=== PATIENT | female | born 1950 | race Caucasian/White ===

== ENCOUNTER 2020-03-06 19:59 | Inpatient (IN) | payer OTHER, MEDICARE ==
--- OUTSIDE RECORDS SUMMARY | 2020-03-06 20:02 | XMS REPORT | Continuity of Care Document ---
:1950 Author Organization [facility] t Address [address] [place] [address] Dr. Holder [address] [place] [address] Care Team Providers Name Role Phone William Elliott MD Attending Clinician Doctor Unassigned, Name Attending Clinician Unavailable Problems This patient has no known problems. Allergies, Adverse Reactions, Alerts This patient has no known allergies or adverse reactions. Medications This patient has no known medications. Procedures This patient has no known procedures. Encounters Start End Encounter Admission Attending Care Care Encounter Source Date/Time Date/Time Type Type Clinicians Facility Department ID 2018-12-26 2018-12-26 Office Gunnar Elliott [id number] 12:59:25 14:28:18 Visit William Aparicio [id number] [facility] [id number] [facility] [id number] BLDG. [id number] 2018-12-26 2018-12-26 Orders Doctor [place] [id number] 00:00:00 00:00:00 Only UnassignedANGEL [id number] [facility] [id number] Results This patient has no known results.
[2020-03-06] MEDS ORDERED: FUROSEMIDE 40 MG/4 ML VIAL ONE (20:21)
[2020-03-06] MEDS ORDERED: ALBUTEROL 2.5 MG/3 ML NEB SOL ONE (20:21)
[2020-03-06] MEDS ORDERED: IPRATROPIUM BROM 0.5MG/2.5ML ONE (20:21)
[2020-03-06] MEDS ORDERED: NITROGLYCERIN/D5W 50 MG/250 ML BTL IV ONE (20:25)
--- NOTE | 2020-03-06 20:31 | RAD REPORT ---
EXAM DESCRIPTION: RAD - Chest Single View - 03/06/2020 8:21 pm CLINICAL HISTORY: SOB Chest pain. COMPARISON: CHEST SINGLE VIEW dated 07/22/2015 FINDINGS: Portable technique limits examination quality. Mild pulmonary edema. The heart is moderately enlarged in size. No displaced fractures.Hardware is pr esent proximal left humerus. IMPRESSION: Mild to moderate CHF.
[2020-03-06] MEDS ORDERED: ETOMIDATE 20 MG/10 ML VIAL IV ONE (20:32)
[2020-03-06] MEDS ORDERED: ROCURONIUM 50 MG/5 ML VIAL IV ONE (20:33)
[2020-03-06 20:37] LABS: Arterial Blood Carboxyhemoglob 0.7 % (0-1.5); Blood Gas Oxyhemoglobin 92.2 % (94-97)
[2020-03-06 20:42] LABS: Absolute Lymphocytes (CBC) 5.8 K/uL (0.7-4.9); Basophils % 1.1 % (0-1.3); Hematocrit 41.4 % (36.0-45.0); Lymphocytes % 24.5 % (15.3-44.8); MPV 10.4 fL (7.6-11.3); Protime INR 0.91; RBC Red Blood Cell Count 4.41 M/uL (3.86-4.86)
[2020-03-06] MEDS ORDERED: NA CHLORIDE 0.9% 250 ML ONE (20:49)
[2020-03-06] MEDS ORDERED: CEFTRIAXONE/SWI 1gm 1 GM/10 ML SYR ONE (20:49)
[2020-03-06] MEDS ORDERED: AZITHROMYCIN 500 MG INJ IVPB ONE (20:49)
[2020-03-06] MEDS ORDERED: propofoL 1,000 MG/100 ML VIAL IV ONE (20:50)
--- NOTE | 2020-03-06 21:18 | RAD REPORT ---
EXAM DESCRIPTION: RAD - Chest Single View - 03/06/2020 9:00 pm CLINICAL HISTORY: POST ETT Chest pain. COMPARISON: Chest Single View dated 03/06/2020; CHEST SINGLE VIEW dated 07/22/2015 FINDINGS: Portable technique limits examination quality. Tip of the endotracheal tube is above the lily. Enteric tube descends in the stomach. Moderate bila teral pulmonary opacities are noted most compatible pulmonary edema. The heart is mildly enlarged in size. IMPRESSION: Moderate CHF.
[2020-03-06 21:45] LABS: Blood Morphology Comment NOT SEEN (NOT SEEN); Platelet Estimate ADEQ
[2020-03-06 21:58] LABS: ALT/SGPT 28 U/L (12-78); AST/SGOT 24 U/L (15-37); Albumin 3.8 g/dL (3.4-5.0); Alkaline Phosphatase 107 U/L (45-117); BUN Blood Urea Nitrogen 22 mg/dL (7-18); Bicarbonate 17 mmol/L (21-32); Bilirubin Direct 0.2 mg/dL (0-0.2); Bilirubin Total 0.8 mg/dL (0.2-1.0); Glucose Level 380 mg/dL (74-106); Magnesium 2.5 mg/dL (1.8-2.4); NT PRO-BNP 3090 pg/mL (<125); Potassium 4.1 mmol/L (3.5-5.1); Protein, Total 7.4 g/dL (6.4-8.2); Sodium Level 143 mmol/L (136-145); Troponin (Emerg Dept Use Only) < 0.02 ng/mL (0.0-0.045)
--- NOTE | 2020-03-06 22:06 | EDPHYS ---
Physician Documentation [facility] Name: Julio Moss Age: 69 yrs Sex: Female : 1950 Arrival Date: 03/06/2020 Time: 20:01 Bed 4 Private MD: ED Physician Vern Alejandro HPI: 03/06 20:44 This 69 yrs old Female presents to ER via Wheelchair with complaints of mh7 Shortness Of Breath. 20:44 The patient has shortness of breath at rest. Onset: The symptoms/episode began/occurred mh7 today, and became worse just prior to arrival, today. Duration: The symptoms are continuous, and are markedly worse than the original presentation. The patient's shortness of breath has no apparent modifying factors. Associated signs and symptoms: Pertinent negatives: chest pain, non-productive cough, productive cough, diaphoresis, dizziness, fever, hemoptysis, loss of consciousness, nausea, numbness in extremities, visual changes, vomiting. Severity of symptoms: At their worst the symptoms were severe just prior to arrival, today, in the emergency department the symptoms are unchanged. Historical: - Allergies: 20:06 OPIATES; jd3 20:06 Sulfa (Sulfonamide Antibiotics); jd3 20:06 Levofloxacin; jd3 20:06 PENICILLINS; jd3 - Home Meds: 20:08 Metformin Oral [Active]; Omeprazole Oral [Active]; lisinopril Oral [Active]; Furosemide jd3 Oral [Active]; Metoprolol Tartrate Oral [Active]; Allopurinol Oral [Active]; paroxetine oral oral [Active]; aspirin Oral [Active]; - PMHx: 20:08 CHF; Diabetes - NIDDM; GERD; Hypertension; jd3 - Immunization history:: Adult Immunizations up to date. - Social history:: Smoking status: Patient denies any tobacco usage or history of. ROS: 20:44 Constitutional: Negative for fever, chills, and weight loss, Eyes: Negative for injury, mh7 pain, redness, and discharge, ENT: Negative for injury, pain, and discharge, Neck: Negative for injury, pain, and swelling, Cardiovascular: Negative for chest pain, palpitations, and edema, Abdomen/GI: Negative for abdominal pain, nausea, vomiting, diarrhea, and constipation, Back: Negative for injury and pain, : Negative for injury, bleeding, discharge, and swelling, MS/Extremity: Negative for injury and deformity, Skin: Negative for injury, rash, and discoloration, Neuro: Negative for headache, weakness, numbness, tingling, and seizure, Psych: Negative for depression, anxiety, suicide ideation, homicidal ideation, and hallucinations, Allergy/Immunology: Negative for hives, rash, and allergies, Endocrine: Negative for neck swelling, polydipsia, polyuria, polyphagia, and marked weight changes, Hematologic/Lymphatic: Negative for swollen nodes, abnormal bleeding, and unusual bruising. Exam: 20:44 Head/Face: Normocephalic, atraumatic. Eyes: Pupils equal round and reactive to light, mh7 extra-ocular motions intact. Lids and lashes normal. Conjunctiva and sclera are non-icteric and not injected. Cornea within normal limits. Periorbital areas with no swelling, redness, or edema. Neck: Trachea midline, no thyromegaly or masses palpated, and no cervical lymphadenopathy. Supple, full range of motion without nuchal rigidity, or vertebral point tenderness. No Meningismus. Chest/axilla: Normal chest wall appearance and motion. Nontender with no deformity. No lesions are appreciated. 20:44 Abdomen/GI: Soft, non-tender, with normal bowel sounds. No distension or tympany. No guarding or rebound. No evidence of tenderness throughout. Back: No spinal tenderness. No costovertebral tenderness. Full range of motion. Skin: Warm, dry with normal turgor. Normal color with no rashes, no lesions, and no evidence of cellulitis. MS/ Extremity: Pulses equal, no cyanosis. Neurovascular intact. Full, normal range of motion. Neuro: Awake and alert, GCS 15, oriented to person, place, time, and situation. Cranial nerves II-XII grossly intact. Motor strength 5/5 in all extremities. Sensory grossly intact. Cerebellar exam normal. Normal gait. Psych: Awake, alert, with orientation to person, place and time. Behavior, mood, and affect are within normal limits. 20:44 Constitutional: The patient appears alert, awake, in obvious distress, severely distressed, uncomfortable. 20:44 Cardiovascular: Rate: tachycardic, Rhythm: regular, Pulses: no pulse deficits are appreciated, Heart sounds: normal, normal S1and S2, Edema: pedal edema, that is mild, JVD: is not appreciated. 20:44 Respiratory: severe repiratory distress is noted, Respirations: labored breathing, that is severe, accessory muscle usage, that is severe, prolonged exhalation, that is moderate, tachypnea, that is moderate, Breath sounds: rales, that are moderate, are heard diffusely, rhonchi, that are moderate, are scattered, Respiratory rate: 40 Vital Signs: 20:08 BP 168 / 88; Pulse 135; Resp 45; Temp 96.9(TE); Pulse Ox 48% on R/A; sg 20:19 Pulse 105; Resp 40; Pulse Ox 92% on 100% BiPAP; Weight 78.02 kg; sg 21:22 BP 169 / 102; Pulse 94; Resp 16; Temp 98.9; Pulse Ox 95% ; ea 21:44 BP 180 / 95; Pulse 88; Resp 16 A; Pulse Ox 95% on 50% FiO2 ETT vent; sg Procedures: 20:49 Intubation: Ventilated with 100% NRB prior to procedure. O2 saturation prior to [facility] procedure was 92 %. Intubated orally using # 4 Emiliano blade with 7.5 mm ETT. was successful on first attempt. Ventilated with Ambu bag. ventilator. Cricoid pressure applied during procedure. Tube secured with ETT wise at center of mouth measured 21 cm at lip. Placement verified by CO2 detector with (+) color change, auscultating bilateral breath sounds, O2 saturation after procedure was 99 %. Patient tolerated well. MDM: 20:34 Patient medically screened. [facility] 21:56 Differential diagnosis: Anemia Anxiety Reaction asthma, Bronchitis CHF exacerbation, mh7 Chronic Obstructive Pulmonary Disease Myocardial Infarction pneumonia, Pneumothorax pulmonary edema, reactive airway disease. Antibiotic administration: Rocephin and Zithromax given. Data reviewed: vital signs, nurses notes, old medical records, lab test result(s), cardiac enzymes, CBC, electrolytes, urinalysis, EKG, radiologic studies, plain films. Data interpreted: Pulse oximetry: on ventilator is 95 %. Interpretation: acceptable. Response to treatment: the patient's symptoms have markedly improved after treatment. Physician consultation: Angelo Castorena MD regarding patient's condition, and will see patient in unit, would like admission per Dr. Kade Helms MD. 03/06 20:12 Order name: Basic Metabolic Panel; Complete Time: 22:05 [facility] 03/06 20:12 Order name: CBC with Diff; Complete Time: 21:50 [facility] 03/06 20:12 Order name: LFT's; Complete Time: 22:05 [facility] 03/06 20:12 Order name: Magnesium; Complete Time: 22:05 [facility] 03/06 20:12 Order name: NT PRO-BNP; Complete Time: 22:05 [facility] 03/06 20:12 Order name: PT-INR; Complete Time: 21:04 [facility] 03/06 20:12 Order name: Troponin (emerg Dept Use Only); Complete Time: 22:05 [facility] 03/06 20:14 Order name: Arterial Blood Gas; Complete Time: 21:25 [facility] 03/06 20:18 Order name: Glucose, Ancillary Testing; Complete Time: 20:34 [facility] 03/06 20:35 Order name: Blood Culture Adult (2) [facility] 03/06 20:35 Order name: Lactate; Complete Time: 21:20 [facility] 03/06 20:35 Order name: Blood Culture Adult (2) [facility] 03/06 20:36 Order name: Influenza Screen (a \T\ B); Complete Time: 21:50 [facility] 03/06 20:36 Order name: COVID-19 [facility] 03/06 20:54 Order name: Manual Differential; Complete Time: 21:50 [facility] 03/06 21:38 Order name: Arterial Blood Gas [facility] 03/06 22:27 Order name: Troponin I [facility] 03/06 22:27 Order name: Troponin I [facility] 03/06 22:27 Order name: Troponin I [facility] 03/06 22:27 Order name: Troponin I [facility] 03/06 22:27 Order name: Basic Metabolic Panel [facility] 03/06 22:27 Order name: Basic Metabolic Panel [facility] 03/06 22:27 Order name: CBC with Automated Diff [facility] 03/06 22:27 Order name: CBC with Automated Diff [facility] 03/06 22:27 Order name: Lipid Profile [facility] 03/06 22:27 Order name: Lipid Profile [facility] 03/06 22:27 Order name: Magnesium [facility] 03/06 22:27 Order name: Magnesium [facility] 03/06 22:28 Order name: ABG Arterial Blood Gas [facility] 03/06 22:52 Order name: Ketone, Serum ea 03/06 20:12 Order name: XRAY Chest (1 view); Complete Time: 20:34 [facility] 03/06 20:12 Order name: EKG; Complete Time: 20:13 [facility] 03/06 20:34 Order name: Chest Single View XRAY; Complete Time: 21:25 [facility] 03/06 22:08 Order name: CT Chest For PE Angio [facility] 03/06 22:16 Order name: CONS Physician Consult [facility] 03/06 22:28 Order name: Chest Single View [facility] 03/06 22:28 Order name: Chest Single View [facility] 03/06 23:14 Order name: Acetone Level [facility] 03/07 00:15 Order name: SARS-COV-2 RT PCR [facility] 03/07 00:26 Order name: Lactate Sepsis 2 HR Follow-up [facility] 03/07 00:37 Order name: Glucose, Ancillary Testing [facility] 03/07 02:17 Order name: Urine Dipstick--Ancillary (enter results) [facility] 03/07 02:32 Order name: Glucose, Ancillary Testing [facility] 03/07 02:53 Order name: Urine Dipstick-Ancillary [facility] 03/07 04:41 Order name: Glucose, Ancillary Testing [facility] 03/07 06:33 Order name: Glucose, Ancillary Testing [facility] 03/07 08:03 Order name: Glucose, Ancillary Testing [facility] 03/06 20:12 Order name: Cardiac monitoring; Complete Time: 20:13 [facility] 03/06 20:12 Order name: EKG - Nurse/Tech; Complete Time: 20:13 [facility] 03/06 20:12 Order name: IV Saline Lock; Complete Time: 20:13 [facility] 03/06 20:12 Order name: Labs collected and sent; Complete Time: 20:13 [facility] 03/06 20:12 Order name: O2 Per Protocol; Complete Time: 20:13 [facility] 03/06 20:12 Order name: O2 Sat Monitoring; Complete Time: 20:13 [facility] 03/06 20:34 Order name: Intubation Setup; Complete Time: 20:34 sg 03/06 20:52 Order name: Urine Dipstick-Ancillary (obtain specimen); Complete Time: 02:18 [facility] 03/06 21:18 Order name: Frazier; Complete Time: 21:18 ea 03/06 22:27 Order name: EKG Electrocardiogram EDMS 03/06 22:27 Order name: EKG Electrocardiogram EDMS 03/06 22:27 Order name: EKG Electrocardiogram EDMS 03/06 22:28 Order name: Respiratory Therapy Consult EDMS Administered Medications: Discontinued: Nitro Drip - (Nitroglycerin 50 mg, D5W 250 ml) IV at 5 mcg/min continuous; titrate until desired hemodynamic response. 20:10 Drug: Lasix 40 mg Route: IVP; Site: right hand; sg 20:50 Follow up: Response: No adverse reaction ea 20:15 Drug: Albuterol - atroVENT (3:1) (2.5 mg - 0.5 mg) 3 ml Route: Nebulizer; sg 21:00 Follow up: Response: No adverse reaction ea 20:18 Drug: Nitro Drip - (Nitroglycerin 50 mg, D5W 250 ml) Route: IV; Rate: 5 mcg/min; Site: sg left antecubital; 20:28 Drug: Etomidate 20 mg Route: IVP; Site: right hand; sg 20:35 Follow up: Response: No adverse reaction ea 20:30 Drug: Rocuronium 50 mg Route: IVP; Site: right hand; sg 21:39 Follow up: Response: No adverse reaction ea 20:50 Drug: Rocephin - (cefTRIAXone) 1 grams Route: IVPB; Infused Over: 30 mins; Site: right ea hand; 21:58 Follow up: Response: No adverse reaction; IV Status: Completed infusion; IV Intake: 10mlea 21:05 Drug: AZITHromycin 500 mg Route: IVPB; Infused Over: 1 hrs; Site: left antecubital; ea 22:10 Follow up: Response: No adverse reaction; IV Status: Completed infusion ea 21:21 Drug: Propofol 5 mcg/kg/min Route: IV; Rate: calculated rate; Site: right hand; ea 03/07 05:07 Follow up: IV Status: Infusion continued upon admission ea 03/06 22:24 Drug: Insulin Regular Human 10 units {Co-Signature: basilia (Nate Daniel RN).} Route: IVP; ea Site: left antecubital; 03/07 02:08 Follow up: Response: No adverse reaction ea 03/06 22:42 Drug: NS 0.9% 1000 ml Route: IV; Rate: 1000 ml; Site: left antecubital; ea 03/07 00:29 Follow up: Response: No adverse reaction; IV Status: Completed infusion; IV Intake: ea 1000ml 00:05 Drug: NS 0.9% (30 ml/kg) 30 ml/kg Route: IV; Rate: bolus; Site: right antecubital; ea 02:07 Follow up: Response: No adverse reaction; IV Intake: 1340ml ea 02:08 Follow up: IV Status: Completed infusion ea 05:07 Not Given (Physician Discretion): Insulin Drip - (Insulin Regular Human 100 units, NS ea 0.9% 100 ml) IV at calculated rate continuous; Standard concentration 1unit/ml; Dose for DKA is 0.1 units/kg/hr 08:24 Drug: Lovenox 80 mg Route: Sub-Q; Site: left lower abdomen; aa5 08:24 Drug: Pepcid 20 mg Route: IVP; Site: right antecubital; aa5 Disposition: 03/06/20 22:05 Hospitalization ordered by Kade Helms for Inpatient Admission. Preliminary diagnosis are CHF Exacerbation, Pneumonia, Acute Respiratory Failure. - [facility]. - Status is Inpatient Admission. aa5 - Condition is Critical. - Problem is an acute exacerbation. - Symptoms have improved. Signatures: Dispatcher [employer] EDDC Nate Daniel RN ANAHI sg Sandee Gómez RN RN aa5 Ne Henson RN RN tl1 Mami Mohan RN RN ea Davies, Jonathon, RN RN jd3 Holmes, Maurice, MD MD [facility] Nate Daniel RN sg Corrections: (The following items were deleted from the chart) 03/06 20:20 20:13 Chest Pa And Lat (2 Views)+[id number] ordered. EDDC EDMS 22:21 22:05 Hospitalization Ordered by Kade Helms MD for Inpatient Admission. Preliminary tl1 diagnosis is CHF Exacerbation; Pneumonia; Acute Respiratory Failure. Bed requested for Intensive Care Unit. Status is Inpatient Admission. Condition is Critical. Problem is an acute exacerbation. Symptoms have improved. mh7 03/07 09:16 11 22:21 03/06/2020 22:05 Hospitalization Ordered by Kade Helms MD for Inpatient aa5 Admission. Preliminary diagnosis is CHF Exacerbation; Pneumonia; Acute Respiratory Failure. [facility]. Status is Inpatient Admission. Condition is Critical. Problem is an acute exacerbation. Symptoms have improved. tl1
--- NOTE | 2020-03-06 22:06 | ER ---
Nurse's Notes [facility] Name: Julio Moss Age: 69 yrs Sex: Female : 1950 Arrival Date: 03/06/2020 Time: 20:01 Bed 4 Private MD: Diagnosis: CHF Exacerbation;Pneumonia;Acute Respiratory Failure Presentation: 03/06 20:03 Chief complaint: Spouse and/or significant other states: "She was having a hard time jd3 breathing. it started earlier today, then got better, but now it got a lot worse.". Coronavirus screen: difficulty breathing, Client presents with at least one sign or symptom that may indicate coronavirus-19. Standard/surgical mask placed on the client. Provider contacted for isolation considerations. Ebola Screen: Patient negative for fever greater than or equal to 101.5 degrees Fahrenheit, and additional compatible Ebola Virus Disease symptoms. Initial Sepsis Screen:. Risk Assessment: Do you want to hurt yourself or someone else? Patient reports no desire to harm self or others. Onset of symptoms was March 06, 2020. 20:03 Method Of Arrival: Wheelchair jd3 20:03 Acuity: SUELLEN 1 jd3 21:30 Initial Sepsis Screen: Does the patient meet any 2 criteria? RR > 20 per min. HR > 90 ea bpm. Does the patient have a suspected source of infection? No. Patient's initial sepsis screen is negative. Triage Assessment: 20:10 General: Appears uncomfortable, Behavior is appropriate for age. Pain: Denies pain. ea Respiratory: Reports shortness of breath labored breathing Onset: The symptoms/episode began/occurred at an unknown time. the patient has severe shortness of breath. Historical: - Allergies: 20:06 OPIATES; jd3 20:06 Sulfa (Sulfonamide Antibiotics); jd3 20:06 Levofloxacin; jd3 20:06 PENICILLINS; jd3 - Home Meds: 20:08 Metformin Oral [Active]; Omeprazole Oral [Active]; lisinopril Oral [Active]; Furosemide jd3 Oral [Active]; Metoprolol Tartrate Oral [Active]; Allopurinol Oral [Active]; paroxetine oral oral [Active]; aspirin Oral [Active]; - PMHx: 20:08 CHF; Diabetes - NIDDM; GERD; Hypertension; jd3 - Immunization history:: Adult Immunizations up to date. - Social history:: Smoking status: Patient denies any tobacco usage or history of. Screenin:29 Abuse screen: Denies threats or abuse. Nutritional screening: No deficits noted. ea Tuberculosis screening: No symptoms or risk factors identified. Fall Risk IV access (20 points). Assessment: 20:08 General: Appears distressed, well groomed, well developed, well nourished, Behavior is sg anxious, drowsy, listless, restless. Neuro: Level of Consciousness is lethargic, listless, Oriented to none. Cardiovascular: Capillary refill is sluggish in bilateral fingers. Respiratory: Airway is patent Respiratory effort is labored, shallow, using tripod position, Respiratory pattern is symmetrical, hyperventilation. Derm: Skin is dusky, mottled, Skin temperature is cold. 20:24 Reassessment: no improvement noted with interventions, at bedside with Jose cui TIPPLE MECHANIC for intubation at this time. 20:45 Reassessment: pt intubated by , see assist provider charting. sg 21:00 Reassessment: Verbal order obtained to discontinue nitro drip if BP is too low. ea 21:16 Reassessment: lactate 8.0 candy from laboratory called, ED provider aware. rr5 21:18 Reassessment: no orders received for fluid resuscitation at this time per Laisha, pt sg history of CHF, possible overload, administered lasix as ordered. 22:00 Reassessment: Pt resting with eyes closed, ETT in place, resp assisted, NG tube in ea place to low intermittent suction. Frazier catheter in place to BSD, IV sites patent with fluids, no erythema or edema noted. 22:40 Reassessment: Verbal order to given NS total of 2300 mls. ea 23:00 Reassessment: Pt resting with eyes closed, ETT in place resp assisted, david breath ea sounds noted. NG tube in place to low intermittent suction. Frazier catheter in place to BSD. IV sites intact and patent with fluids. No Erythema or edema noted at this time. 23:10 Reassessment: Provider gave verbal to hold insulin drip until next blood sugar. ea Vital Signs: 20:08 BP 168 / 88; Pulse 135; Resp 45; Temp 96.9(TE); Pulse Ox 48% on R/A; sg 20:19 Pulse 105; Resp 40; Pulse Ox 92% on 100% BiPAP; Weight 78.02 kg; sg 21:22 BP 169 / 102; Pulse 94; Resp 16; Temp 98.9; Pulse Ox 95% ; ea 21:44 BP 180 / 95; Pulse 88; Resp 16 A; Pulse Ox 95% on 50% FiO2 ETT vent; sg ED Course: 20:01 Patient arrived in ED. cl3 20:02 Vern Alejandro MD is Attending Physician. mh7 20:05 Triage completed. jd3 20:08 Arm band placed on. jd3 20:08 Initial lab(s) drawn, by ED staff, sent to lab. Inserted saline lock: 20 gauge in right sg hand, using aseptic technique. 20:20 XRAY Chest (1 view) In Process Unspecified. EDMS 20:30 Inserted saline lock: 20 gauge in left antecubital area, using aseptic technique. rr5 20:45 Assisted provider with intubation using 7.5 mm ETT via oral route. Set up intubation sg tray. Intubated by Vern Alejandro MD Placement verified by CO2 detector w/ + color change, auscultating bilateral breath sounds, CXR, Patient tolerated well. 20:46 NGT: inserted 14 Fr. via left nare. verified placement of air over stomach, verified sg return of gastric contents, to intermittent suction. Returned gastric contents. Amount of gastric contents removed by suction 50ml. Patient tolerated well. 20:57 Frazier cath inserted, using sterile technique, 16 Fr., by me, balloon inflated, to ea gravity drainage. 20:59 Chest Single View XRAY In Process Unspecified. EDMS 21:29 Mami Mohan, RN is Primary Nurse. ea 21:29 Patient has correct armband on for positive identification. Placed in gown. Bed in low ea position. Call light in reach. Side rails up X2. Adult w/ patient. guest relations executive on. Pulse ox on. NIBP on. 22:03 Kade Helms MD is Hospitalizing Provider. 7 03/07 00:00 Repeat lab(s) drawn. by me, sent to lab. rr5 00:07 Patient admitted, IV remains in place. ea Administered Medications: Discontinued: Nitro Drip - (Nitroglycerin 50 mg, D5W 250 ml) IV at 5 mcg/min continuous; titrate until desired hemodynamic response. 03/06 20:10 Drug: Lasix 40 mg Route: IVP; Site: right hand; sg 20:50 Follow up: Response: No adverse reaction ea 20:15 Drug: Albuterol - atroVENT (3:1) (2.5 mg - 0.5 mg) 3 ml Route: Nebulizer; sg 21:00 Follow up: Response: No adverse reaction ea 20:18 Drug: Nitro Drip - (Nitroglycerin 50 mg, D5W 250 ml) Route: IV; Rate: 5 mcg/min; Site: sg left antecubital; 20:28 Drug: Etomidate 20 mg Route: IVP; Site: right hand; sg 20:35 Follow up: Response: No adverse reaction ea 20:30 Drug: Rocuronium 50 mg Route: IVP; Site: right hand; sg 21:39 Follow up: Response: No adverse reaction ea 20:50 Drug: Rocephin - (cefTRIAXone) 1 grams Route: IVPB; Infused Over: 30 mins; Site: right ea hand; 21:58 Follow up: Response: No adverse reaction; IV Status: Completed infusion; IV Intake: 10mlea 21:05 Drug: AZITHromycin 500 mg Route: IVPB; Infused Over: 1 hrs; Site: left antecubital; ea 22:10 Follow up: Response: No adverse reaction; IV Status: Completed infusion ea 21:21 Drug: Propofol 5 mcg/kg/min Route: IV; Rate: calculated rate; Site: right hand; ea 03/07 05:07 Follow up: IV Status: Infusion continued upon admission ea 03/06 22:24 Drug: Insulin Regular Human 10 units {Co-Signature: sg (Nate Daniel RN).} Route: IVP; ea Site: left antecubital; 03/07 02:08 Follow up: Response: No adverse reaction ea 03/06 22:42 Drug: NS 0.9% 1000 ml Route: IV; Rate: 1000 ml; Site: left antecubital; ea 03/07 00:29 Follow up: Response: No adverse reaction; IV Status: Completed infusion; IV Intake: ea 1000ml 00:05 Drug: NS 0.9% (30 ml/kg) 30 ml/kg Route: IV; Rate: bolus; Site: right antecubital; ea 02:07 Follow up: Response: No adverse reaction; IV Intake: 1340ml ea 02:08 Follow up: IV Status: Completed infusion ea 05:07 Not Given (Physician Discretion): Insulin Drip - (Insulin Regular Human 100 units, NS ea 0.9% 100 ml) IV at calculated rate continuous; Standard concentration 1unit/ml; Dose for DKA is 0.1 units/kg/hr 08:24 Drug: Lovenox 80 mg Route: Sub-Q; Site: left lower abdomen; aa5 08:24 Drug: Pepcid 20 mg Route: IVP; Site: right antecubital; aa5 Intake: 03/06 21:58 IV: 10ml; Total: 10ml. ea 11 00:29 IV: 1000ml; Total: 1010ml. ea 02:07 IV: 1340ml; Total: 2350ml. ea Outcome: 03/06 22:05 Decision to Hospitalize by Provider. mh7 03/07 00:07 Admitted to ER Hold. Please see [facility] for further documentation. ea Condition: stable 09:00 Admitted to ICU accompanied by nurse, via stretcher, with oxygen, on monitor, with aa5 chart, Report called to ANAHI Fair 09:05 Patient left the ED. aa5 Signatures: Dispatcher [employer] EDMS Nate Daniel RN RN Sandee Ford RN RN aa5 Mami Mohan RN RN ea Davies, Jonathon, RN RN Kirill Lares RN RN [email or web address] Lamonte Duff3 Vern Alejandro MD MD [facility] Nate cui Corrections: (The following items were deleted from the chart) 09:17 09:16 Patient left the ED. aa5 aa5
[2020-03-06] MEDS ORDERED: ACETAMINOPHEN 500 MG TAB FT PRN (22:15)
[2020-03-06] MEDS ORDERED: ALBUTEROL 2.5 MG/3 ML NEB SOL NEB PRN (22:15)
[2020-03-06] MEDS ORDERED: INSULIN -REGULAR HUMAN 50 UNIT/0.5 ML ML ONE (22:45)
[2020-03-06] MEDS ORDERED: NA CHLORIDE 0.9% 100 ML IV ONE (22:45)
[2020-03-06] MEDS ORDERED: NA CHLORIDE 0.9% 1,000 ML ONE ×2 (22:45→23:08)
[2020-03-06] MEDS ORDERED: NA CHLORIDE 0.9% 1,000 ML IV SCH (23:00)
[2020-03-06 23:04] LABS: Blood Gas Oxyhemoglobin 92.8 % (94-97)
[2020-03-07] MEDS: MIDAZOLAM HCL 2 MG/2 ML INJ IV PRN ×3 (00:50→06:41)
[2020-03-07] MEDS ORDERED: propofoL 1,000 MG/100 ML VIAL IV ONE ×5 (00:58→21:25)
[2020-03-07] MEDS ORDERED: MIDAZOLAM HCL 2 MG/2 ML INJ ONE ×3 (00:58→06:53)
[2020-03-07] MEDS ORDERED: NA CHLORIDE 0.9% 1,000 ML ONE (01:36)
[2020-03-07] MEDS: NACHLORIDE 0.45% 1,000 ML with POTASSIUM CL 20 MEQ IV SCH ×4 (02:00→06:03)
[2020-03-07] MEDS ORDERED: INSULIN -REGULAR HUMAN 100 UNIT in NA CHLORIDE 0.9% 100 ML IV SCH (02:00)
[2020-03-07] MEDS ORDERED: D5.45NS W/KCL 20MEQ 1,000 ML IV SCH (02:00)
[2020-03-07 02:52] LABS: Urine Blood NEGATIVE (NEG); Urine Glucose NEGATIVE (NEG); Urine Protein NEGATIVE (NEG); Urine Specific Gravity 1.005 (1.005-1.030)
[2020-03-07 04:55] LABS: Basophils % 0.2 % (0-1.3); Hematocrit 32.3 % (36.0-45.0); Lymphocytes % 6.8 % (15.3-44.8); MPV 9.9 fL (7.6-11.3); RBC Red Blood Cell Count 3.57 M/uL (3.86-4.86)
[2020-03-07 05:27] LABS: Magnesium 1.8 mg/dL (1.8-2.4); Potassium 3.8 mmol/L (3.5-5.1)
[2020-03-07] MEDS: INSULIN -REGULAR HUMAN 50 UNIT/0.5 ML ML SQ SCH ×5 (06:00→21:00)
[2020-03-07] MEDS ORDERED: NA CHLORIDE 0.9% 1,000 ML IV SCH (06:40)
[2020-03-07] MEDS ORDERED: D50W 25 GM/50 ML SYRINGE/VIAL IV PRN (06:56)
[2020-03-07] MEDS ORDERED: GLUCAGON 1 MG/VIAL IM PRN (06:56)
[2020-03-07] MEDS ORDERED: Levofloxacin 750mg IV 750 MG/150 ML BAG IV SCH (07:00)
--- NOTE | 2020-03-07 07:33 | EKG ---
Test Date: 2020-03-06 Test Time: 20:06:07 Battery Assembler Plastic: KEAGAN MEASUREMENT RESULTS: Intervals: Rate: 115 CT: 196 QRSD: 98 QT: 334 QTc: 462 Bogard: P: CT: 196 QRS: -26 T: 109 INTERPRETIVE STATEMENTS: Sinus tachycardia Anterior infarct, age undetermined ST & T wave abnormality, consider lateral ischemia Abnormal ECG Compared to ECG 07/22/2015 23:25:31 Sinus rhythm no longer present Myocardial infarct finding still present ST (T wave) deviation still present Possible ischemia still present Electronically Signed On 03-07-20 07:32:22 BUSINESS DEVELOPMENT INTERN by Jim Slaughter
[2020-03-07] MEDS ORDERED: Levofloxacin 750mg IV 0 MG/0 ML BAG IV ONE (07:37)
[2020-03-07] MEDS ORDERED: ENOXAPARIN 80 MG/0.8 ML SQ ONE ×3 (07:37→20:15)
[2020-03-07] MEDS ORDERED: FAMOTIDINE 20 MG/2 ML VIAL IV ONE ×3 (07:37→20:15)
[2020-03-07] MEDS ORDERED: Levofloxacin 750mg IV 750 MG/150 ML BAG IV ONE (07:52)
--- NOTE | 2020-03-07 08:00 | RAD REPORT ---
EXAM DESCRIPTION: [place] Single View03/07/2020 6:29 am CLINICAL HISTORY: Shortness of breath COMPARISON: March 06 FINDINGS: No change in mild bilateral pulmonary opacities. Small pleural effusions. The heart remain s enlarged IMPRESSION: Mild CHF
[2020-03-07] MEDS: FAMOTIDINE 20 MG/2 ML VIAL IV SCH ×2 (09:00→20:27)
[2020-03-07] MEDS: ENOXAPARIN 80 MG/0.8 ML SQ SCH ×2 (09:00→20:27)
[2020-03-07] MEDS ORDERED: CEFEPIME 1 GM/VIAL IV SCH (09:00)
[2020-03-07] MEDS ORDERED: MIDAZOLAM HCL 2 MG/2 ML INJ IV PRN (09:26)
[2020-03-07] MEDS: FENTANYL CITR 100 MCG/2 ML IV PRN ×2 (09:31→21:13)
[2020-03-07] MEDS ORDERED: FENTANYL CITR 100 MCG/2 ML ONE ×2 (09:42→21:25)
[2020-03-07] MEDS: CEFEPIME/SWI 1gm 10 ML IV SCH ×2 (10:06→20:26)
--- NOTE | 2020-03-07 11:20 | RAD REPORT ---
EXAM DESCRIPTION: CT - Chest For Pe Angio - 03/07/2020 6:23 am CLINICAL HISTORY: The patient is 69 years old and is Female; SOB TECHNIQUE: Axial computed tomographic angiography images of the chest with intravenous contrast. S agittal and coronal reformatted images were created and reviewed. This CT exam was performed using one or more of the following dose reduction techniques: automated exposure control, adjustment of t he mA and/or kV according to patient size, and/or use of iterative reconstruction technique. MIP reconstructed images were created and reviewed. COMPARISON: No relevant prior studies available. FINDINGS: ARTIFACTS: The exam is suboptimal secondary to motion artifact. PULMONARY ARTERIES: The main pulmonary arteries and proximal segmental branches opacify normally and are without filling defect. AORTA: No acute findings. No thoracic aortic aneurysm. LUNGS: Dependent densities in the lung bases is noted. Suggestion of minimal centrilobular locate d groundglass opacities are present, specifically within the upper lobes. PLEURAL SPACE: Bilateral pleural effusions are present, right greater than left. No pneumothora x. HEART: The heart is enlarged. No significant pericardial effusion. No evidence of RV dysfunct ion. BONES/JOINTS: No acute fracture. No dislocation. SOFT TISSUES: Unremarkable. LYMPH NODES: Unremarkable. No enlarged lymph nodes. TUBES, LINES AND DEVICES: Endotracheal tube is present with the tip superior to the lily. An enteric tube is present with the tip in the gastric body. IMPRESSION: 1. The main pulmonary arteries and proximal segmental branches opacify normally and ar e without filling defect. The remainder of the pulmonary vessels are inadequately evaluated seconda ry to motion artifact. 2. Bilateral pleural effusions with dependent atelectasis. 3. Nonspecific mild groundglass opacity centrally. Imaging features can be seen with viral pneumoni a, though are nonspecific and can occur with a variety of infectious and noninfectious processes. Pne Ind Reference: https://pubs.rsna.org/doi/full/10.1148/[email or web address] Electronically signed by: Shelly Dasilva MD 03/07/2020 12:07 AM SEALANT MIXER Due to temporary technical issues with the PACS/Fluency reporting system, reports are being signed by the in house radiologists without review as a courtesy to insure prompt reporting. The interpreting radiologist is fully responsible for the content of the report.
[2020-03-07] MEDS: LORazepam 2 MG/ML VIAL IV PRN (11:44)
[2020-03-07] MEDS ORDERED: LORazepam 2 MG/ML VIAL ONE (11:48)
[2020-03-07] MEDS: propofoL 1,000 MG/100 ML VIAL IV PRN ×3 (11:55→21:14)
--- NOTE | 2020-03-07 12:59 | P.HP ---
Certification for Inpatient Patient admitted to: Inpatient With expected LOS: >2 Midnights Practitioner: I am a practitioner with admitting privileges, knowledge of patient current condition, hospital course, and medical plan of care. Services: Services provided to patient in accordance with Admission requirements found in Title 42 Section 412.3 of the Code of Federal Regulations Patient History Date of Service: 03/07/20 Reason for admission: DYSPNEA History of Present Illness: BRY IS AN OBESE,DIABETIC PATIENT WITH POOR DIET CONTROL COMES WITH SUDDEN DYSPNEA OVER A FEW HOURS, HAD TO BE INTUBATED IN ER SHE HAD RESPIRATOR FAILURE. SHE HAD WBC COUNT OF 24K AND IT CAME DOWN TO 14 WITH ANTIBIOTICS. SHE IS ALLERGIC TO PCN AN LEVAQUIN. AND HER CAME TO OFFICE A FEW DAYS AGO AND SHE HAD NO SUCH COMPLAINTS AT THAT TIME. Allergies Penicillins Adverse Reaction (Verified 08/21/15 11:30) Nausea/Vomiting Sulfa (Sulfonamide Antibiotics Allergy (Uncoded 07/23/15 02:45) Unknown OPIATES Adverse Reaction (Uncoded 08/21/15 11:30) Nausea/Vomiting Home Medications: Allopurinol 300 mg PO DAILY 03/07/20 Amlodipine [Norvasc*] 5 mg PO DAILY 03/07/20 Aspirin Chewable [Aspirin Chewable*] 81 mg PO DAILY 03/07/20 Cholecalciferol (Vitamin D3) [Vitamin D3] 2,000 iu PO DAILY 03/07/20 Cinnamon Bark [Cinnamon] 500 mg PO DAILY 03/07/20 Clonidine HCl [Clonidine HCl ER] 0.1 mg PO Q2HP PRN MDD 0.6 03/07/20 Glimepiride [Amaryl] 4 mg PO DAILY 03/07/20 Lisinopril [Zestril] 40 mg PO DAILY 03/07/20 Mecobalamin [B12 Active] 2,500 mcg PO DAILY 03/07/20 Metformin ER [Glucophage ER*] 500 mg PO BID 03/07/20 Metoprolol Succinate [Toprol Xl] 100 mg PO DAILY 03/07/20 Omeprazole 20 mg PO DAILY 03/07/20 Paroxetine Mesylate 10 mg PO DAILY 03/07/20 Spironolactone [Aldactone*] 50 mg PO DAILY 03/07/20 - Social History Smoking Status: Unknown if ever smoked Review of Systems is unable to be obtained Physical Examination - Vital Signs Temperature: 98.2 F Blood Pressure: 107/55 Pulse: 58 Respirations: 16 Pulse Ox (%): 97 - Physical Exam General: Moderate distress, Obese, Other (INTUBATED ON VENT.) HEENT: Atraumatic, PERRLA, Mucous membr. moist/pink, EOMI, Sclerae nonicteric Neck: Supple, 2+ carotid pulse no bruit, No LAD, Without JVD or thyroid abnormality Respiratory: Clear to auscultation bilaterally, Normal air movement Cardiovascular: Regular rate/rhythm, Normal S1 S2 Gastrointestinal: Normal bowel sounds, No tenderness Musculoskeletal: No tenderness Integumentary: No rashes Neurological: Normal gait, Normal speech, Normal strength at 5/5 x4 extr, Normal tone, Normal affect Lymphatics: No axilla or inguinal lymphadenopathy - Studies Laboratory Data (last 24 hrs) 03/06/20 20:11: PT 10.8, INR 0.91 03/06/20 20:11: WBC 23.8 H*, Hgb 13.2, Hct 41.4, Plt Count 299 03/06/20 20:11: Sodium 143, Potassium 4.1, BUN 22 H, Creatinine 1.40 H, Glucose 380 H, Magnesium 2.5 H, Total Bilirubin 0.8, AST 24, ALT 28, Alkaline Snow sphatase 107 Microbiology Data (last 24 hrs): 03/06/20 21:08 Nasopharnyx Influenza Type A Antigen Screen - Final 03/06/20 21:08 Nasopharnyx Influenza Type B Antigen Screen - Final Assessment and Plan - Problems (Diagnosis) (1) Bacterial pneumonia Current Visit: Yes Status: Acute Plan: IV CEFEPIME ALLERGIC TO OTHER ABX DR. HORTON CONSULT. (2) Diabetes mellitus Current Visit: Yes Status: Chronic Plan: FU DONE ATOFFICE Qualifiers: Diabetes mellitus type: type 2 (3) HTN (hypertension) Current Visit: Yes Status: Chronic (4) Lateral wall myocardial infarction Current Visit: Yes Status: Acute Plan: NOT UNUSUAL FOR DIABETICS WHO ARE NOT CONTROLLED TO HAVE THIS. FU AFTER EXTUBATION WITH TICKET SELLER - Advance Directives Does patient have a Living Will: No Does patient have a Durable POA for Healthcare: No
--- NOTE | 2020-03-07 13:07 | P.CNS ---
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 has some shortness of breath respiratory failure from possible sepsis currently hemodynamically stable Allergies Penicillins Adverse Reaction (Verified 08/21/15 11:30) Nausea/Vomiting Sulfa (Sulfonamide Antibiotics Allergy (Uncoded 07/23/15 02:45) Unknown OPIATES Adverse Reaction (Uncoded 08/21/15 11:30) Nausea/Vomiting Home Medications: Allopurinol 300 mg PO DAILY 03/07/20 Amlodipine [Norvasc*] 5 mg PO DAILY 03/07/20 Aspirin Chewable [Aspirin Chewable*] 81 mg PO DAILY 03/07/20 Cholecalciferol (Vitamin D3) [Vitamin D3] 2,000 iu PO DAILY 03/07/20 Cinnamon Bark [Cinnamon] 500 mg PO DAILY 03/07/20 Clonidine HCl [Clonidine HCl ER] 0.1 mg PO Q2HP PRN MDD 0.6 03/07/20 Glimepiride [Amaryl] 4 mg PO DAILY 03/07/20 Lisinopril [Zestril] 40 mg PO DAILY 03/07/20 Mecobalamin [B12 Active] 2,500 mcg PO DAILY 03/07/20 Metformin ER [Glucophage ER*] 500 mg PO BID 03/07/20 Metoprolol Succinate [Toprol Xl] 100 mg PO DAILY 03/07/20 Omeprazole 20 mg PO DAILY 03/07/20 Paroxetine Mesylate 10 mg PO DAILY 03/07/20 Spironolactone [Aldactone*] 50 mg PO DAILY 03/07/20 - Past Medical/Surgical History -: Diabetes -: Hypertension -: Incurred Review of Systems is unable to be obtained Physical Examination Temp Pulse Resp BP Pulse Ox 98.2 F 58 16 107/55 L 97 03/07/20 13:00 03/07/20 13:00 03/07/20 13:00 03/07/20 13:00 03/07/20 13:00 General: Other (Unresponsive) Respiratory: Crackles/rales, Expiratory wheezes Cardiovascular: No edema, Normal S1 S2 Gastrointestinal: Normal bowel sounds, Soft and benign Laboratory Data (last 24 hrs) 03/06/20 20:11: PT 10.8, INR 0.91 03/06/20 20:11: WBC 23.8 H*, Hgb 13.2, Hct 41.4, Plt Count 299 03/06/20 20:11: Sodium 143, Potassium 4.1, BUN 22 H, Creatinine 1.40 H, Glucose 380 H, Magnesium 2.5 H, Total Bilirubin 0.8, AST 24, ALT 28, Alkaline Phosphatase 107 - Problems (1) Respiratory failure Current Visit: Yes Status: Acute Plan: Patient is 69 years of age developed acute respiratory distress respiratory failure currently on a ventilator patient was hypoxic hypercarbic acidotic white count significantly elevated lactic acid elevated mild renal impairment urinalysis and tinoco virus test some negative CT scan of the chest shows bilateral bibasilar changes most likely bilateral pleural effusion possible that she has congestive heart failure BNP was over 3000 echocardiogram is pending at low-dose Lasix currently she is on 40% FiO2 possible wean tomorrow continue with cefepime there is no evidence of allergy to penicillin blood cultures sputum cultures pending tinoco virus is negative Qualifiers: Respiratory failure complication: hypoxia and hypercapnia
[2020-03-07] MEDS: FUROSEMIDE 20 MG/ 2ML VIAL IV SCH ×2 (13:21→15:36)
[2020-03-07] MEDS ORDERED: ALBUTEROL 2.5 MG/3 ML NEB SOL NEB PRN (15:00)
[2020-03-07] MEDS ORDERED: D50W 25 GM/50 ML SYRINGE/VIAL IV ONE (16:46)
[2020-03-07] MEDS: D5 0.45 NS 1,000 ML IV SCH (17:08)
[2020-03-07] MEDS ORDERED: D5 0.45 NS 1,000 ML IV ONE (17:21)
[2020-03-08] MEDS: INSULIN -REGULAR HUMAN 50 UNIT/0.5 ML ML SQ SCH ×6 (01:00→21:00)
[2020-03-08] MEDS: propofoL 1,000 MG/100 ML VIAL IV PRN ×5 (01:01→23:42)
[2020-03-08] MEDS ORDERED: propofoL 1,000 MG/100 ML VIAL IV ONE ×5 (01:06→21:30)
[2020-03-08] MEDS ORDERED: MIDAZOLAM HCL 2 MG/2 ML INJ ONE ×4 (03:01→21:29)
[2020-03-08] MEDS: MIDAZOLAM HCL 2 MG/2 ML INJ IV PRN ×4 (03:45→21:30)
[2020-03-08] MEDS: FENTANYL CITR 100 MCG/2 ML IV PRN (04:46)
[2020-03-08] MEDS ORDERED: FENTANYL CITR 100 MCG/2 ML ONE (04:57)
[2020-03-08] MEDS ORDERED: LORazepam 2 MG/ML VIAL ONE ×3 (05:20→15:48)
[2020-03-08 05:25] LABS: Absolute Lymphocytes (CBC) 1.5 K/uL (0.7-4.9); Basophils % 0.9 % (0-1.3); Hematocrit 30.3 % (36.0-45.0); Lymphocytes % 19.4 % (15.3-44.8); RBC Red Blood Cell Count 3.38 M/uL (3.86-4.86)
[2020-03-08] MEDS: LORazepam 2 MG/ML VIAL IV PRN ×3 (05:25→15:59)
[2020-03-08 05:32] LABS: Magnesium 2.1 mg/dL (1.8-2.4); Phosphorus 3.5 mg/dL (2.5-4.9); Potassium 3.6 mmol/L (3.5-5.1)
[2020-03-08 05:54] LABS: Arterial Blood Carboxyhemoglob 1.3 % (0-1.5); Blood Gas Oxyhemoglobin 95.1 % (94-97); Blood O2 Saturation 97.5 % (92-98.5)
[2020-03-08] MEDS ORDERED: KCL 20 MEQ/100 mL IVPB 20 MEQ/100 ML BAG IV SCH (08:00)
--- NOTE | 2020-03-08 08:49 | ECHO ---
HEIGHT: 5 ft 0 in WEIGHT: 172 lb 0.074 oz DATE OF STUDY: 03/07/[address]: Kade Helms MD 2-DIMENSIONAL: YES M.MODE: YES DOPPLER: YES COLOR FLOW: YES TDS: NO PORTABLE: YES DEFINITY: NO BUBBLE STUDY: NO DIAGNOSIS: EDEMA, DYSPNEA CARDIAC HISTORY: CATHERIZATION: YES SURGERY: NO PROSTHETIC VALVE: NO PACEMAKER: NO MEASUREMENTS (cm) DIASTOLIC (NORMALS) SYSTOLIC (NORMALS) IVSd 1.0 (0.6-1.2) LA Diam 3.0 (1.9-4.0) LVEF 66% LVIDd 4.0 (3.5-5.7) LVIDs 2.6 (2.0-3.5) %FS 36% LVPWd 1.1 (0.6-1.2) Ao Diam 2.6 (2.0-3.7) 2 DIMENSIONAL ASSESSMENT: RIGHT ATRIUM: NORMAL LEFT ATRIUM: NORMAL RIGHT VENTRICLE: NORMAL LEFT VENTRICLE: NORMAL TRICUSPID VALVE: NORMAL MITRAL VALVE: NORMAL PULMONIC VALVE: NORMAL AORTIC VALVE: NORMAL PERICARDIAL EFFUSION: NONE AORTIC ROOT: NORMAL LEFT VENTRICULAR WALL MOTION: NORMAL DOPPLER/COLOR FLOW: NORMAL COMMENTS: NORMAL LEFT VENTRICULAR EJECTION FRACTION 55-60% WITH NORMAL WALL MOTION. GRADE I DIASTOLIC DYSFUNCTION. TECHNOLOGIST: Kareem HIGHTOWER
--- NOTE | 2020-03-08 08:58 | RAD REPORT ---
EXAM DESCRIPTION: RAD - Chest Single View - 03/08/2020 5:39 am CLINICAL HISTORY: vented Chest pain. COMPARISON: Chest Single View dated 03/07/2020; Chest Single View dated 03/06/2020; Chest Single View dated 03/06/2020; CHEST SINGLE VIEW dated 07/22/2015 FINDINGS: Portable technique limits examination quality. The lungs are grossly clear. Tip of the ET tube is above the lily. Enteric tube descends into the u pper abdomen. Hardware is present proximal left humerus.
[2020-03-08] MEDS ORDERED: ASPIRIN EC 81 MG TAB PO SCH (09:00)
[2020-03-08] MEDS: HALOPERIDOL LACT 5 MG/ML INJ IV PRN ×2 (10:09→21:29)
[2020-03-08] MEDS: FUROSEMIDE 20 MG/ 2ML VIAL IV SCH (10:09)
[2020-03-08] MEDS: ENOXAPARIN 80 MG/0.8 ML SQ SCH ×2 (10:09→21:28)
[2020-03-08] MEDS ORDERED: FUROSEMIDE 20 MG/ 2ML VIAL ONE (10:10)
[2020-03-08] MEDS: FAMOTIDINE 20 MG/2 ML VIAL IV SCH ×2 (10:10→21:29)
[2020-03-08] MEDS ORDERED: FAMOTIDINE 20 MG/2 ML VIAL IV ONE ×2 (10:11→21:30)
[2020-03-08] MEDS ORDERED: ENOXAPARIN 80 MG/0.8 ML SQ ONE ×2 (10:11→21:29)
[2020-03-08] MEDS: CEFEPIME/SWI 1gm 10 ML IV SCH ×2 (10:13→21:28)
--- NOTE | 2020-03-08 10:23 | P.PN ---
Subjective Date of Service: 03/08/20 Chief Complaint: Respiratory failure Patient is a very agitated restless minimal oxygen requirement chest x-ray looks better Review of Systems is unable to be obtained Physical Examination - Vital Signs Temperature: 97.6 F Blood Pressure: 168/83 Pulse: 120 Respirations: 16 Pulse Ox (%): 100 - Physical Exam General: Unresponsive Respiratory: Clear to auscultation bilaterally, Diminished Cardiovascular: No edema, Normal S1 S2 Assessment & Plan - Problems (Diagnosis) (1) Respiratory failure Current Visit: Yes Status: Acute Plan: Patient admitted with respiratory failure grade 1 diastolic dysfunction chest x- ray looks clear blood cultures are negative sputum cultures pending labs reviewed kidney function is improved patient is slightly hypernatremic white count is now normal will sedate her back again today plan to resume weaning tomorrow possibly extubate agitated blood pressure elevated Lasix discontinued troponin mildly elevated Qualifiers: Respiratory failure complication: hypoxia and hypercapnia
[2020-03-08] MEDS ORDERED: KCL 20 MEQ/100 mL IVPB 20 MEQ/100 ML BAG IV ONE (10:26)
[2020-03-08] MEDS ORDERED: ASPIRIN 81 MG CHEWABLE TABLET ONE (12:06)
[2020-03-08] MEDS ORDERED: D5 0.45 NS 1,000 ML IV ONE (12:07)
[2020-03-08] MEDS: ASPIRIN 81 MG CHEWABLE TABLET PO SCH (12:38)
[2020-03-08] MEDS: D5 0.45 NS 1,000 ML IV SCH (12:38)
--- NOTE | 2020-03-08 16:41 | P.PN ---
Subjective Date of Service: 03/08/20 Chief Complaint: Respiratory failure Subjective: Improving SHE IS STABLE, STARTING TO FIGHT THE VENTILATOR. DR. HORTON WORKING ON WEANING. Review of Systems is unable to be obtained Physical Examination - Vital Signs Temperature: 97.5 F Blood Pressure: 147/67 Pulse: 65 Respirations: 16 Pulse Ox (%): 97 - Physical Exam General: Mild distress, Obese HEENT: Atraumatic, PERRLA, EOMI Neck: Supple, JVD not distended Respiratory: Clear to auscultation bilaterally, Normal air movement Cardiovascular: Regular rate/rhythm, Normal S1 S2 Gastrointestinal: Normal bowel sounds, No tenderness Musculoskeletal: No tenderness Integumentary: No rashes Neurological: Normal speech, Normal tone, Normal affect Lymphatics: No axilla or inguinal lymphadenopathy - Studies Medications List Reviewed: Yes Assessment And Plan - Current Problems (Diagnosis) (1) Bacterial pneumonia Current Visit: Yes Status: Acute Plan: IV CEFEPIME ALLERGIC TO OTHER ABX DR. HORTON CONSULT. RESUME ANBX FEVER, WBC HAS IMPROVED. (2) Diabetes mellitus Current Visit: Yes Status: Chronic Plan: FU DONE ATOFFICE Qualifiers: Diabetes mellitus type: type 2 (3) HTN (hypertension) Current Visit: Yes Status: Chronic (4) Lateral wall myocardial infarction Current Visit: Yes Status: Acute Plan: NOT UNUSUAL FOR DIABETICS WHO ARE NOT CONTROLLED TO HAVE THIS. FU AFTER EXTUBATION WITH PLASTIC MAKER
[2020-03-08] MEDS ORDERED: Meropenem 1 GM/100 ML BAG ONE (19:33)
[2020-03-08] MEDS ORDERED: HALOPERIDOL LACT 5 MG/ML INJ ONE (21:29)
[2020-03-08] MEDS ORDERED: CEFEPIME 1 GM/100 ML BAG IV ONE (21:30)
[2020-03-09] MEDS: INSULIN -REGULAR HUMAN 50 UNIT/0.5 ML ML SQ SCH ×6 (01:00→20:39)
[2020-03-09] MEDS ORDERED: MIDAZOLAM HCL 2 MG/2 ML INJ ONE ×3 (03:29→15:55)
[2020-03-09] MEDS ORDERED: propofoL 1,000 MG/100 ML VIAL IV ONE ×5 (03:30→20:55)
[2020-03-09] MEDS: propofoL 1,000 MG/100 ML VIAL IV PRN ×4 (03:38→20:44)
[2020-03-09] MEDS: MIDAZOLAM HCL 2 MG/2 ML INJ IV PRN ×3 (03:44→15:44)
[2020-03-09 05:35] LABS: Potassium 3.1 mmol/L (3.5-5.1)
[2020-03-09 05:45] LABS: Absolute Lymphocytes (CBC) 1.2 K/uL (0.7-4.9); Basophils % 1.3 % (0-1.3); Hematocrit 29.1 % (36.0-45.0); Lymphocytes % 16.4 % (15.3-44.8); MPV 10.5 fL (7.6-11.3); RBC Red Blood Cell Count 3.24 M/uL (3.86-4.86)
[2020-03-09] MEDS: D5 0.45 NS 1,000 ML IV SCH (06:42)
[2020-03-09] MEDS ORDERED: D5 0.45 NS 1,000 ML IV ONE (06:53)
[2020-03-09] MEDS ORDERED: ENOXAPARIN 80 MG/0.8 ML SQ ONE ×2 (08:52→20:28)
[2020-03-09] MEDS ORDERED: CEFEPIME 1 GM/100 ML BAG IV ONE (08:52)
[2020-03-09] MEDS ORDERED: FAMOTIDINE 20 MG/2 ML VIAL IV ONE ×2 (08:52→20:29)
[2020-03-09] MEDS ORDERED: ASPIRIN 81 MG CHEWABLE TABLET ONE (08:53)
[2020-03-09] MEDS: ENOXAPARIN 80 MG/0.8 ML SQ SCH ×2 (09:05→20:20)
[2020-03-09] MEDS: CEFEPIME/SWI 1gm 10 ML IV SCH ×2 (09:05→20:21)
[2020-03-09] MEDS: FAMOTIDINE 20 MG/2 ML VIAL IV SCH ×2 (09:05→20:21)
[2020-03-09] MEDS: ASPIRIN 81 MG CHEWABLE TABLET PO SCH (09:05)
[2020-03-09] MEDS: LORazepam 2 MG/ML VIAL IV PRN ×2 (09:28→17:59)
[2020-03-09] MEDS ORDERED: LORazepam 2 MG/ML VIAL ONE ×2 (09:38→18:04)
--- NOTE | 2020-03-09 10:01 | P.PN ---
Subjective Date of Service: 03/09/20 Chief Complaint: Respiratory failure Patient continues to remain very agitated failed the weaning trial today acquiring sedation hemodynamically stable Review of Systems is unable to be obtained Physical Examination - Vital Signs Temperature: 98.2 F Blood Pressure: 141/67 Pulse: 53 Respirations: 16 Pulse Ox (%): 100 - Physical Exam General: Moderate distress, Unresponsive Respiratory: Clear to auscultation bilaterally Cardiovascular: No edema, Regular rate/rhythm - Studies Medications List Reviewed: Yes Assessment & Plan - Problems (Diagnosis) (1) Respiratory failure Current Visit: Yes Status: Acute Plan: Patient admitted with respiratory failure no evidence of sepsis white count has declined significantly echocardiogram shows grade 1 diastolic dysfunction probably start tube feeds if unable to wean tomorrow cultures are so far negative tinoco virus negative hypernatremia corrected I have added some thymine chest x-ray remains clear some haziness perhaps pleural effusion in the left side Qualifiers: Respiratory failure complication: hypoxia and hypercapnia
[2020-03-09] MEDS: THIAMINE 200 MG/2 ML INJ IVP SCH (10:48)
[2020-03-09] MEDS: ZIPRASIDONE MESYLA 20 MG/VIAL IM PRN ×2 (10:49→22:01)
[2020-03-09] MEDS: WATER FOR INJ,STERILE 10 ML IM PRN (10:50)
[2020-03-09] MEDS ORDERED: THIAMINE 200 MG/2 ML INJ ONE (10:59)
[2020-03-09] MEDS ORDERED: WATER FOR INJ,STERILE 10 ML ONE ×2 (11:00→22:10)
[2020-03-09] MEDS ORDERED: ZIPRASIDONE MESYLA 20 MG/VIAL IM ONE ×2 (11:00→22:09)
[2020-03-09] MEDS ORDERED: POTASSIUM 25 MEQ EFFERV TAB PO ONE ×2 (11:35→17:34)
[2020-03-09] MEDS ORDERED: POTASSIUM 25 MEQ EFFERV TAB ONE ×2 (12:26→18:04)
--- NOTE | 2020-03-09 14:54 | P.PN ---
Subjective Date of Service: 03/09/20 Chief Complaint: Respiratory failure Subjective: Improving (AWAKE WHEN SEDATION TAPERED BUT SHE FIGHTS VENTILATOR AND BP GOES TO 220 SYSTOLIC.) SHE IS STABLE, STARTING TO FIGHT THE VENTILATOR. DR. HORTON WORKING ON WEANING. Review of Systems is unable to be obtained General: Weakness, Malaise Eyes: As per HPI Physical Examination - Vital Signs Temperature: 97.7 F Blood Pressure: 156/75 Pulse: 60 Respirations: 16 Pulse Ox (%): 100 - Physical Exam General: Moderate distress, Obese HEENT: Atraumatic, PERRLA, EOMI Neck: Supple, JVD not distended Respiratory: Clear to auscultation bilaterally, Normal air movement Cardiovascular: Regular rate/rhythm, Normal S1 S2 Gastrointestinal: Normal bowel sounds, No tenderness Musculoskeletal: No tenderness Integumentary: No rashes Neurological: Normal speech, Normal tone, Normal affect Lymphatics: No axilla or inguinal lymphadenopathy - Studies Medications List Reviewed: Yes Assessment And Plan - Current Problems (Diagnosis) (1) Bacterial pneumonia Current Visit: Yes Status: Acute Plan: IV CEFEPIME ALLERGIC TO OTHER ABX DR. HORTON CONSULT. RESUME ANBX FEVER, WBC HAS IMPROVED. IV ABX. STABLE FOR NOW. (2) Diabetes mellitus Current Visit: Yes Status: Chronic Plan: FU DONE ATOFFICE Qualifiers: Diabetes mellitus type: type 2 (3) HTN (hypertension) Current Visit: Yes Status: Chronic Qualifiers: Hypertension type: essential hypertension Qualified Code(s): I10 - Essential (primary) hypertension (4) Lateral wall myocardial infarction Current Visit: Yes Status: Acute Plan: NOT UNUSUAL FOR DIABETICS WHO ARE NOT CONTROLLED TO HAVE THIS. FU AFTER EXTUBATION WITH JOIST SETTER (5) Ventilator dependence Current Visit: Yes Status: Acute Plan: MAY BE ABLE TO EXTUBATE IN AM. I SUSPECT SHE WHEN VENT TAKEN OUT WILL QUIT FIGHTING ADN WILL NOT NEED SEDATION. TALKED TO .
[2020-03-09] MEDS: HALOPERIDOL LACT 5 MG/ML INJ IV PRN (17:58)
[2020-03-09] MEDS ORDERED: HALOPERIDOL LACT 5 MG/ML INJ ONE (18:04)
[2020-03-10] MEDS: INSULIN -REGULAR HUMAN 50 UNIT/0.5 ML ML SQ SCH ×6 (00:15→19:54)
[2020-03-10] MEDS ORDERED: propofoL 1,000 MG/100 ML VIAL IV ONE ×2 (00:18→05:45)
[2020-03-10] MEDS: propofoL 1,000 MG/100 ML VIAL IV PRN ×2 (01:23→05:34)
[2020-03-10] MEDS: LORazepam 2 MG/ML VIAL IV PRN (02:51)
[2020-03-10] MEDS ORDERED: LORazepam 2 MG/ML VIAL ONE (03:02)
[2020-03-10] MEDS ORDERED: D5 0.45 NS 1,000 ML IV ONE (03:40)
[2020-03-10] MEDS: D5 0.45 NS 1,000 ML IV SCH (04:10)
[2020-03-10 05:20] LABS: Absolute Lymphocytes (CBC) 0.9 K/uL (0.7-4.9); Basophils % 0.5 % (0-1.3); Hematocrit 30.3 % (36.0-45.0); Lymphocytes % 13.1 % (15.3-44.8); MPV 9.5 fL (7.6-11.3); RBC Red Blood Cell Count 3.38 M/uL (3.86-4.86)
[2020-03-10 05:48] LABS: Magnesium 1.7 mg/dL (1.8-2.4); Phosphorus 2.7 mg/dL (2.5-4.9); Potassium 3.5 mmol/L (3.5-5.1)
[2020-03-10] MEDS ORDERED: MAGNESIUM SULFATE 1 gm IVPB 1 GM/100 ML BAG IV ONE ×2 (06:37→07:00)
[2020-03-10] MEDS ORDERED: KCL 20 MEQ/100 mL IVPB 20 MEQ/100 ML BAG IV ONE (06:38)
[2020-03-10] MEDS ORDERED: KCL 20 MEQ/100 mL IVPB 20 MEQ/100 ML BAG IV SCH (07:00)
[2020-03-10] MEDS ORDERED: ASPIRIN 81 MG CHEWABLE TABLET ONE (08:22)
[2020-03-10] MEDS ORDERED: THIAMINE 200 MG/2 ML INJ ONE (08:22)
[2020-03-10] MEDS ORDERED: FAMOTIDINE 20 MG/2 ML VIAL IV ONE ×2 (08:22→19:59)
[2020-03-10] MEDS ORDERED: ENOXAPARIN 80 MG/0.8 ML SQ ONE (08:22)
[2020-03-10] MEDS: THIAMINE 200 MG/2 ML INJ IVP SCH (08:34)
[2020-03-10] MEDS: ASPIRIN 81 MG CHEWABLE TABLET PO SCH (08:34)
[2020-03-10] MEDS: ENOXAPARIN 80 MG/0.8 ML SQ SCH (08:34)
[2020-03-10] MEDS: FAMOTIDINE 20 MG/2 ML VIAL IV SCH ×2 (08:34→19:53)
[2020-03-10] MEDS: CEFEPIME/SWI 1gm 10 ML IV SCH ×2 (08:35→19:53)
[2020-03-10] MEDS: ZIPRASIDONE MESYLA 20 MG/VIAL IM PRN ×2 (11:36→19:53)
[2020-03-10] MEDS: WATER FOR INJ,STERILE 10 ML IM PRN (11:36)
[2020-03-10] MEDS ORDERED: ZIPRASIDONE MESYLA 20 MG/VIAL IM ONE ×2 (11:46→19:59)
[2020-03-10] MEDS ORDERED: WATER FOR INJ,STERILE 10 ML ONE ×2 (11:46→20:00)
--- NOTE | 2020-03-10 13:12 | P.PN ---
Subjective Date of Service: 03/10/20 Chief Complaint: Respiratory failure SHE IS STABLE, STARTING TO FIGHT THE VENTILATOR. DR. HORTON WORKING ON WEANING. EXTUBATED, BUT STAYS CONFUSED, THRASHING. Review of Systems is unable to be obtained Physical Examination - Vital Signs Temperature: 97.2 F Blood Pressure: 148/71 Pulse: 56 Respirations: 16 Pulse Ox (%): 100 - Physical Exam General: Moderate distress, Confused, Obese HEENT: Atraumatic, PERRLA, EOMI Neck: Supple, JVD not distended Respiratory: Clear to auscultation bilaterally, Normal air movement Cardiovascular: Regular rate/rhythm, Normal S1 S2 Gastrointestinal: Normal bowel sounds, No tenderness Musculoskeletal: No tenderness Integumentary: No rashes Neurological: Normal speech, Normal tone, Normal affect Lymphatics: No axilla or inguinal lymphadenopathy - Studies Medications List Reviewed: Yes Assessment And Plan - Current Problems (Diagnosis) (1) Bacterial pneumonia Current Visit: Yes Status: Acute Plan: IV CEFEPIME ALLERGIC TO OTHER ABX DR. HORTON CONSULT. RESUME ANBX FEVER, WBC HAS IMPROVED. IV ABX. STABLE FOR NOW. X RAY IS SHOWING MILD INFILTERATE. RSUME ABX. (2) Diabetes mellitus Current Visit: Yes Status: Chronic Plan: FU DONE ATOFFICE Qualifiers: Diabetes mellitus type: type 2 (3) HTN (hypertension) Current Visit: Yes Status: Chronic Qualifiers: Hypertension type: essential hypertension Qualified Code(s): I10 - Essential (primary) hypertension (4) Lateral wall myocardial infarction Current Visit: Yes Status: Acute Plan: NOT UNUSUAL FOR DIABETICS WHO ARE NOT CONTROLLED TO HAVE THIS. FU AFTER EXTUBATION WITH WOOD TREATING INSPECTOR (5) Ventilator dependence Current Visit: Yes Status: Acute Plan: MAY BE ABLE TO EXTUBATE IN AM. I SUSPECT SHE WHEN VENT TAKEN OUT WILL QUIT FIGHTING ADN WILL NOT NEED SEDATION. TALKED TO . EXTUBATION HAS NOT DONW ELL. SHE IS NOT FULLY COOPERATIVE YET. AGITATED. BP HIGH BECAUSE OF IT. DO ABG. DO AMMONIA LEVEL. DR. HORTON GAVE GEODON. SHE DOES NOT HAVE ANY MENTAL ISSUES FROM PAST. SHE DOES NOT HAVE ANY MAJOR RESPIRATORY ISSUES.
[2020-03-10 13:35] LABS: Arterial Blood Carboxyhemoglob 1.5 % (0-1.5); Blood Gas Oxyhemoglobin 90.1 % (94-97); Blood O2 Saturation 92.5 % (92-98.5)
[2020-03-10] MEDS: FENTANYL CITR 100 MCG/2 ML IV PRN (16:20)
[2020-03-10] MEDS ORDERED: NALOXONE 0.4 MG/ML VIAL IV ONE (16:39)
[2020-03-10] MEDS ORDERED: NALOXONE 0.4 MG/ML VIAL IV PRN (16:48)
[2020-03-10] MEDS ORDERED: NALOXONE 0.4 MG/ML VIAL ONE (16:50)
[2020-03-10] MEDS ORDERED: TRAMADOL HCL 50 MG TAB PO PRN (16:57)
[2020-03-10] MEDS ORDERED: TRAMADOL HCL 50 MG TAB PO SCH (17:00)
[2020-03-10] MEDS: ENOXAPARIN 40 MG/0.4 ML SQ SCH (17:00)
[2020-03-10] MEDS: METOPROLOL TARTRATE 5 MG/5 ML INJ IV SCH ×2 (17:25→23:07)
[2020-03-10] MEDS: HALOPERIDOL LACT 5 MG/ML INJ IV PRN (19:18)
[2020-03-10] MEDS: cloNIDine HCL 0.1 MG TAB PO PRN (19:23)
[2020-03-10] MEDS ORDERED: cloNIDine HCL 0.1 MG TAB ONE (19:27)
[2020-03-10] MEDS ORDERED: HALOPERIDOL LACT 5 MG/ML INJ ONE (19:27)
[2020-03-10] MEDS ORDERED: CLONIDINE 0.1 MG/PATCH TD SCH (20:00)
[2020-03-10] MEDS: FUROSEMIDE 20 MG/ 2ML VIAL IV SCH (20:31)
--- NOTE | 2020-03-10 20:34 | P.PN ---
Subjective Date of Service: 03/10/20 Chief Complaint: Respiratory failure Patient continues to remain agitated she was extubated today s still delirious unresponsive Review of Systems is unable to be obtained Physical Examination - Vital Signs Temperature: 97.5 F Blood Pressure: 185/81 Pulse: 102 Respirations: 26 Pulse Ox (%): 96 - Physical Exam General: Delirious Respiratory: Clear to auscultation bilaterally Cardiovascular: No edema, Normal S1 S2 - Studies Medications List Reviewed: Yes Assessment & Plan - Problems (Diagnosis) (1) Respiratory failure Current Visit: Yes Status: Acute Plan: Patient extubated continues to remain delirious agitated continue with Geodon and Haldol patient is mildly hypoxic with hypocarbia mildly anemic negative for tinoco virus cultures all negative chest x-ray appears to be clear with mild diffusion I have added a clonidine patch for Hypertension add Lasix will need a CT scan of the head plan to do CT of the head tomorrow Qualifiers: Respiratory failure complication: hypoxia and hypercapnia
[2020-03-10] MEDS ORDERED: CLONIDINE 0.2 MG/PATCH TD SCH (21:00)
[2020-03-10] MEDS ORDERED: FUROSEMIDE 40 MG/4 ML VIAL ONE (21:22)
[2020-03-10] MEDS ORDERED: CLONIDINE 0.2 MG/PATCH TD ONE (21:28)
[2020-03-10] MEDS ORDERED: METOPROLOL TARTRATE 5 MG/5 ML INJ IV ONE (23:19)
[2020-03-11] MEDS: INSULIN -REGULAR HUMAN 50 UNIT/0.5 ML ML SQ SCH ×6 (00:53→21:00)
[2020-03-11] MEDS: D5 0.45 NS 1,000 ML IV SCH ×2 (00:53→05:17)
[2020-03-11] MEDS: HALOPERIDOL LACT 5 MG/ML INJ IV PRN (03:20)
[2020-03-11] MEDS ORDERED: HALOPERIDOL LACT 5 MG/ML INJ ONE (03:31)
[2020-03-11] MEDS: METOPROLOL TARTRATE 5 MG/5 ML INJ IV SCH ×4 (05:16→21:32)
[2020-03-11] MEDS ORDERED: D5 0.45 NS 1,000 ML IV ONE ×2 (05:26→22:45)
[2020-03-11] MEDS ORDERED: METOPROLOL TARTRATE 5 MG/5 ML INJ IV ONE ×4 (05:26→21:28)
[2020-03-11 05:47] LABS: Absolute Lymphocytes (CBC) 0.9 K/uL (0.7-4.9); Basophils % 0.6 % (0-1.3); Hematocrit 33.6 % (36.0-45.0); Lymphocytes % 10.3 % (15.3-44.8); MPV 9.3 fL (7.6-11.3); RBC Red Blood Cell Count 3.75 M/uL (3.86-4.86)
[2020-03-11 05:55] LABS: Magnesium 2.1 mg/dL (1.8-2.4); Potassium 3.5 mmol/L (3.5-5.1)
--- NOTE | 2020-03-11 11:22 | RAD REPORT ---
EXAM DESCRIPTION: XR Chest 1 View CLINICAL HISTORY: Picc line insertion TECHNIQUE: Single frontal view of the chest is submitted. COMPARISON: None available for comparison FINDINGS: Heart: The cardiothoracic silhouette is enlarged. Lungs: Hazy right greater than left basilar opacities. Mediastinum: Unremarkable Pleura: Blunting of the costophrenic angles bilaterally. Bones: Intact Upper abdomen: Unremarkable Other: Right upper extremity PICC tip projects over the mid superior vena cava. Endotracheal tube tip projects 3.5 cm proximal to the lily. Nasogastric tube tip collimated off the [id number]. The d istal visualized portion projects over the left upper quadrant in the expected region of the stomach. IMPRESSION: 1. Right upper extremity PICC tip projects over the mid superior vena cava. 2. Hazy bibasilar opacities, right greater than left soft reflect combination of small bilateral pl eural effusions and underlying consolidation (atelectasis and/or infiltrate). Electronically signed by: Yves Freeman MD 03/09/2020 11:57 PM HIV/AIDS CARE NURSE Due to temporary technical issues with the PACS/Fluency reporting system, reports are being signed by the in house radiologist without review as a courtesy to ensure prompt reporting. The interpreting r adiologist is fully responsible for the content of the report.
[2020-03-11] MEDS: ASPIRIN 81 MG CHEWABLE TABLET PO SCH (11:35)
[2020-03-11] MEDS: FUROSEMIDE 20 MG/ 2ML VIAL IV SCH ×2 (11:35→16:27)
[2020-03-11] MEDS: THIAMINE 200 MG/2 ML INJ IVP SCH (11:35)
[2020-03-11] MEDS ORDERED: THIAMINE 200 MG/2 ML INJ ONE (11:46)
[2020-03-11] MEDS ORDERED: ASPIRIN 81 MG CHEWABLE TABLET ONE (11:46)
[2020-03-11] MEDS ORDERED: FUROSEMIDE 20 MG/ 2ML VIAL ONE ×2 (11:46→16:39)
[2020-03-11] MEDS: ENOXAPARIN 40 MG/0.4 ML SQ SCH (16:28)
[2020-03-11] MEDS ORDERED: ENOXAPARIN 40 MG/0.4 ML SQ ONE (16:39)
[2020-03-11] MEDS ORDERED: cloNIDine HCL 0.1 MG TAB PO PRN (18:23)
[2020-03-12] MEDS: INSULIN -REGULAR HUMAN 50 UNIT/0.5 ML ML SQ SCH ×5 (01:00→20:06)
[2020-03-12] MEDS ORDERED: METOPROLOL TARTRATE 5 MG/5 ML INJ IV ONE ×3 (03:20→16:05)
[2020-03-12] MEDS: METOPROLOL TARTRATE 5 MG/5 ML INJ IV SCH ×3 (04:00→16:38)
[2020-03-12 05:35] LABS: Absolute Lymphocytes (CBC) 1.4 K/uL (0.7-4.9); Basophils % 0.9 % (0-1.3); Hematocrit 36.3 % (36.0-45.0); Lymphocytes % 15.4 % (15.3-44.8); MPV 8.9 fL (7.6-11.3); RBC Red Blood Cell Count 4.07 M/uL (3.86-4.86)
[2020-03-12 06:00] LABS: Potassium 3.2 mmol/L (3.5-5.1)
[2020-03-12] MEDS: PANTOPRAZOLE 40MG TABLET PO SCH (06:32)
[2020-03-12] MEDS ORDERED: PANTOPRAZOLE 40MG TABLET PO ONE (06:43)
[2020-03-12] MEDS: lisinopriL 20 MG TAB PO SCH (07:16)
[2020-03-12] MEDS: KCL 20 MEQ/100 mL IVPB 20 MEQ/100 ML BAG IV SCH ×3 (07:16→09:34)
[2020-03-12] MEDS: AMLODIPINE 5 MG TAB PO SCH (07:16)
[2020-03-12] MEDS: ASPIRIN 81 MG CHEWABLE TABLET PO SCH (07:16)
[2020-03-12] MEDS: THIAMINE 200 MG/2 ML INJ IVP SCH (07:17)
[2020-03-12] MEDS: FUROSEMIDE 20 MG/ 2ML VIAL IV SCH (07:17)
[2020-03-12] MEDS ORDERED: ASPIRIN 81 MG CHEWABLE TABLET ONE (07:26)
[2020-03-12] MEDS ORDERED: METFORMIN HCL 500 MG TAB ONE (07:27)
[2020-03-12] MEDS ORDERED: FUROSEMIDE 20 MG/ 2ML VIAL ONE (07:27)
[2020-03-12] MEDS ORDERED: KCL 20 MEQ/100 mL IVPB 20 MEQ/100 ML BAG IV ONE (07:27)
[2020-03-12] MEDS ORDERED: THIAMINE 200 MG/2 ML INJ ONE (07:27)
[2020-03-12] MEDS ORDERED: lisinopriL 20 MG TAB ONE (07:27)
[2020-03-12] MEDS ORDERED: AMLODIPINE 5 MG TAB ONE (07:27)
[2020-03-12] MEDS: PARoxetine HCL 10 MG TAB PO SCH (08:58)
[2020-03-12] MEDS: CYANOCOBALAMIN 1,000 MCG TAB PO SCH (08:58)
[2020-03-12] MEDS: allopurinoL 300 MG TAB PO SCH (08:59)
[2020-03-12] MEDS: SPIRONOLACTONE 25 MG TABLET PO SCH (08:59)
[2020-03-12] MEDS ORDERED: ASPIRIN 81 MG CHEWABLE TABLET PO SCH (09:00)
[2020-03-12] MEDS: GLIMEPIRIDE 2 MG TABLET PO SCH (09:00)
[2020-03-12] MEDS ORDERED: METOPROLOL XL 50 MG TAB PO SCH (09:00)
[2020-03-12] MEDS: METFORMIN ER 500 MG TAB PO SCH ×3 (09:00→16:46)
[2020-03-12] MEDS: VITAMIN D 1000 UNIT TAB PO SCH (09:01)
[2020-03-12] MEDS ORDERED: KCL 20 MEQ/100 mL IVPB 40 MEQ/200 ML BAG IV ONE (09:16)
[2020-03-12] MEDS: ENOXAPARIN 40 MG/0.4 ML SQ SCH (16:40)
[2020-03-12] MEDS ORDERED: ENOXAPARIN 40 MG/0.4 ML SQ ONE (16:53)
[2020-03-12] MEDS: ENSURE HIGH PROTEIN 237 ML CAN PO SCH (20:12)
--- NOTE | 2020-03-12 20:48 | P.PN ---
Subjective Date of Service: 03/12/20 Chief Complaint: LOT MORE AWAKE. Subjective: Improving SHE IS STABLE, STARTING TO FIGHT THE VENTILATOR. DR. HORTON WORKING ON WEANING. EXTUBATED, BUT STAYS CONFUSED, THRASHING. SHE IS DOING GOOD NOW. Review of Systems 10-point ROS is otherwise unremarkable General: Weakness, Malaise Physical Examination - Vital Signs Temperature: 98.1 F Blood Pressure: 172/82 Pulse: 96 Respirations: 19 Pulse Ox (%): 96 - Physical Exam General: Oriented x3, Mild distress HEENT: Atraumatic, PERRLA, EOMI Neck: Supple, JVD not distended Respiratory: Clear to auscultation bilaterally, Normal air movement Cardiovascular: Regular rate/rhythm, Normal S1 S2 Gastrointestinal: Normal bowel sounds, No tenderness Musculoskeletal: No tenderness Integumentary: No rashes Neurological: Normal speech, Normal tone, Normal affect Lymphatics: No axilla or inguinal lymphadenopathy - Studies Microbiology Data (last 24 hrs): 03/06/20 20:30 Blood - Blood Aerobic Blood Culture - Final No growth in 5 days. 03/06/20 20:30 Blood - Blood Anaerobic Blood Culture - Final No growth in 5 days. 03/06/20 20:15 Blood - Blood Aerobic Blood Culture - Final No growth in 5 days. 03/06/20 20:15 Blood - Blood Anaerobic Blood Culture - Final No growth in 5 days. Medications List Reviewed: Yes Assessment And Plan - Current Problems (Diagnosis) (1) Bacterial pneumonia Current Visit: Yes Status: Acute Plan: IV CEFEPIME ALLERGIC TO OTHER ABX DR. HORTON CONSULT. RESUME ANBX FEVER, WBC HAS IMPROVED. IV ABX. STABLE FOR NOW. X RAY IS SHOWING MILD INFILTERATE. RSUME ABX. (2) Diabetes mellitus Current Visit: Yes Status: Chronic Plan: FU DONE ATOFFICE Qualifiers: Diabetes mellitus type: type 2 (3) HTN (hypertension) Current Visit: Yes Status: Chronic Qualifiers: Hypertension type: essential hypertension Qualified Code(s): I10 - Essential (primary) hypertension (4) Lateral wall myocardial infarction Current Visit: Yes Status: Acute Plan: NOT UNUSUAL FOR DIABETICS WHO ARE NOT CONTROLLED TO HAVE THIS. FU AFTER EXTUBATION WITH DITCHER OPERATOR (5) Ventilator dependence Current Visit: Yes Status: Acute Plan: MAY BE ABLE TO EXTUBATE IN AM. I SUSPECT SHE WHEN VENT TAKEN OUT WILL QUIT FIGHTING ADN WILL NOT NEED SEDATION. TALKED TO . EXTUBATION HAS NOT DONW ELL. SHE IS NOT FULLY COOPERATIVE YET. AGITATED. BP HIGH BECAUSE OF IT. DO ABG. DO AMMONIA LEVEL. DR. HORTON GAVE GEODON. SHE DOES NOT HAVE ANY MENTAL ISSUES FROM PAST. SHE DOES NOT HAVE ANY MAJOR RESPIRATORY ISSUES. EXTUBATED. TRANSFERRED TO SECOND FLOOR.
[2020-03-12] MEDS: cloNIDine HCL 0.1 MG TAB PO PRN (21:18)
[2020-03-12] MEDS: ATORVASTATIN 40 MG TAB PO SCH (21:18)
[2020-03-12 21:58] LABS: HDL Cholesterol 31 mg/dL (40-60); LDL, Direct 209 mg/dL (100-129)
[2020-03-12] MEDS ORDERED: POTASSIUM CL SA 10 MEQ TAB PO ONE (22:44)
[2020-03-13 04:40] LABS: Absolute Lymphocytes (CBC) 1.7 K/uL (0.7-4.9); Hematocrit 34.9 % (36.0-45.0); Lymphocytes % 18.5 % (15.3-44.8); MPV 8.6 fL (7.6-11.3)
[2020-03-13 04:59] LABS: Potassium 3.9 mmol/L (3.5-5.1)
[2020-03-13] MEDS: METOPROLOL XL 50 MG TAB PO SCH (06:08)
[2020-03-13] MEDS: PANTOPRAZOLE 40MG TABLET PO SCH (06:08)
[2020-03-13] MEDS: INSULIN -REGULAR HUMAN 50 UNIT/0.5 ML ML SQ SCH ×4 (07:30→21:00)
[2020-03-13] MEDS: SPIRONOLACTONE 25 MG TABLET PO SCH (08:08)
[2020-03-13] MEDS: lisinopriL 20 MG TAB PO SCH (08:09)
[2020-03-13] MEDS: GLIMEPIRIDE 2 MG TABLET PO SCH (08:09)
[2020-03-13] MEDS: METFORMIN ER 500 MG TAB PO SCH ×2 (08:09→16:27)
[2020-03-13] MEDS: allopurinoL 300 MG TAB PO SCH (08:09)
[2020-03-13] MEDS: AMLODIPINE 5 MG TAB PO SCH (08:09)
[2020-03-13] MEDS: ASPIRIN 81 MG CHEWABLE TABLET PO SCH (08:10)
[2020-03-13] MEDS: CYANOCOBALAMIN 1,000 MCG TAB PO SCH (08:10)
[2020-03-13] MEDS: VITAMIN D 1000 UNIT TAB PO SCH (08:11)
[2020-03-13] MEDS: PARoxetine HCL 10 MG TAB PO SCH (08:11)
[2020-03-13] MEDS: THIAMINE 200 MG/2 ML INJ IVP SCH (08:12)
[2020-03-13] MEDS: ENSURE HIGH PROTEIN 237 ML CAN PO SCH ×2 (08:13→21:21)
[2020-03-13] MEDS ORDERED: POTASSIUM CL SA 10 MEQ TAB PO ONE (09:00)
--- NOTE | 2020-03-13 13:12 | CON ---
Date of Consultation: 03/07/2020 The patient was admitted on 03/06/2020 I saw the patient on 03/07/2020. The patient was admitted by Dr. Helms. Reason For Consultation: Respiratory failure. History Of Present Illness: Ms. Moss is a 69-year-old woman with history of obesity, hypertensi on, dyslipidemia, diabetes, chronic diastolic congestive heart failure, gout, and gastroesophageal re flux disease. Came in with shortness of breath, very hypoxic with O2 saturation at 45%, pulse of 135 , sinus tachycardia, hypertensive, afebrile, requiring intubation. The patient had denied any chest pain upon arrival. She actually denied any pedal edema, but she had orthopnea and PND and shortness of breath. No nausea, vomiting, diaphoresis, palpitation, or syncope. No fever or chills. Allergies: SHE IS ALLERGIC TO OPIATES, SULFA, LEVAQUIN, AND PENICILLIN. Review of Systems: Negative. Social History: Negative. Family History: Negative. Medications: Include metformin, aspirin, Norvasc, lisinopril, clonidine p.r.n., glimepiride, Aldacto ne, allopurinol, metoprolol, and Lasix. Physical Examination: Vital Signs: When I saw her, her blood pressure was 168/88, her pulse was 135, temperature was 96.9. She was intubated. HEENT: Negative. No bruit. Chest: Revealed expiratory wheezing. Cardiac: Revealed a regular rhythm and rate with an S4 gallop. Abdomen: Benign, but obese. Extremities: Revealed no clubbing, cyanosis. She had trace edema. Laboratory Data: Of interest, a chest x-ray showed mild CHF. EKG showed sinus tachycardia. Rest of the blood work was fairly unremarkable. Impression And Plan: 1.Chronic diastolic congestive heart failure. 2.Obesity. 3.Diabetes, well controlled. 4.Hypertension, poorly controlled. 5.Gout. 6.Gastroesophageal reflux disease. 7.Respiratory failure, intubated. I agree with her present regimen. She needs to be on respiratory treatment, Lasix. Echocardiogram is pending. We will continue her p.o. medication after she is abl e to take p.o. for now. We will give supply her with IV therapy. I will discuss the case further wi Dr. Helms. Her echocardiogram will determine further therapy. We may want to consider an outpati ent stress test 1 day after she is extubated. TOMMY/JAMI Voice ID: [id number] Report ID: [id number]
[2020-03-13] MEDS: ENOXAPARIN 40 MG/0.4 ML SQ SCH (16:27)
[2020-03-13] MEDS: cloNIDine HCL 0.1 MG TAB PO PRN (16:37)
--- NOTE | 2020-03-13 18:05 | P.PN ---
Subjective Date of Service: 03/13/20 Chief Complaint: LOT MORE AWAKE. Subjective: Improving SHE IS STABLE, STARTING TO FIGHT THE VENTILATOR. DR. HORTON WORKING ON WEANING. EXTUBATED, BUT STAYS CONFUSED, THRASHING. SHE IS DOING GOOD NOW. SHE IS A LOT BETTER. SHE WALKED WITH THERAPIST, ABLE TO TOLERATE FOOD. DC IN AM . Review of Systems 10-point ROS is otherwise unremarkable Physical Examination - Vital Signs Temperature: 98.2 F Blood Pressure: 152/64 Pulse: 84 Respirations: 16 Pulse Ox (%): 98 - Physical Exam General: Alert, In no apparent distress, Obese HEENT: Atraumatic, PERRLA, EOMI Neck: Supple, JVD not distended Respiratory: Clear to auscultation bilaterally, Normal air movement Cardiovascular: Regular rate/rhythm, Normal S1 S2 Gastrointestinal: Normal bowel sounds, No tenderness Musculoskeletal: No tenderness Integumentary: No rashes Neurological: Normal speech, Normal tone, Normal affect Lymphatics: No axilla or inguinal lymphadenopathy - Studies Medications List Reviewed: Yes Assessment And Plan - Current Problems (Diagnosis) (1) Bacterial pneumonia Current Visit: Yes Status: Acute Plan: IV CEFEPIME ALLERGIC TO OTHER ABX DR. HORTON CONSULT. RESUME ANBX FEVER, WBC HAS IMPROVED. IV ABX. STABLE FOR NOW. X RAY IS SHOWING MILD INFILTERATE. RSUME ABX. (2) Diabetes mellitus Current Visit: Yes Status: Chronic Plan: FU DONE ATOFFICE Qualifiers: Diabetes mellitus type: type 2 (3) HTN (hypertension) Current Visit: Yes Status: Chronic Qualifiers: Hypertension type: essential hypertension Qualified Code(s): I10 - Essential (primary) hypertension (4) Lateral wall myocardial infarction Current Visit: Yes Status: Acute Plan: NOT UNUSUAL FOR DIABETICS WHO ARE NOT CONTROLLED TO HAVE THIS. FU AFTER EXTUBATION WITH CANDLE MAKING SUPERVISOR (5) Ventilator dependence Current Visit: Yes Status: Acute Plan: MAY BE ABLE TO EXTUBATE IN AM. I SUSPECT SHE WHEN VENT TAKEN OUT WILL QUIT FIGHTING ADN WILL NOT NEED SEDATION. TALKED TO . EXTUBATION HAS NOT DONW ELL. SHE IS NOT FULLY COOPERATIVE YET. AGITATED. BP HIGH BECAUSE OF IT. DO ABG. DO AMMONIA LEVEL. DR. HORTON GAVE GEODON. SHE DOES NOT HAVE ANY MENTAL ISSUES FROM PAST. SHE DOES NOT HAVE ANY MAJOR RESPIRATORY ISSUES. EXTUBATED. TRANSFERRED TO SECOND FLOOR.
[2020-03-13] MEDS: ATORVASTATIN 40 MG TAB PO SCH (21:16)
[2020-03-14 05:07] LABS: Absolute Lymphocytes (CBC) 1.5 K/uL (0.7-4.9); Basophils % 0.6 % (0-1.3); Hematocrit 29.7 % (36.0-45.0); Lymphocytes % 18.4 % (15.3-44.8)
[2020-03-14] MEDS: METOPROLOL XL 50 MG TAB PO SCH (05:29)
[2020-03-14] MEDS: PANTOPRAZOLE 40MG TABLET PO SCH (05:30)
[2020-03-14 05:36] VITALS: BMI 33.4
[2020-03-14 08:44] VITALS: BP 175/71; TEMP 96.9
[2020-03-14] MEDS: ENSURE HIGH PROTEIN 237 ML CAN PO SCH (09:00)
[2020-03-14] MEDS: PARoxetine HCL 10 MG TAB PO SCH (09:00)
[2020-03-14] MEDS ORDERED: LOSARTAN POTASSIUM 50 MG TABLET PO SCH (09:00)
[2020-03-14] MEDS: CYANOCOBALAMIN 1,000 MCG TAB PO SCH (09:12)
[2020-03-14] MEDS: VITAMIN D 1000 UNIT TAB PO SCH (09:13)
[2020-03-14] MEDS: THIAMINE 200 MG/2 ML INJ IVP SCH (09:13)
[2020-03-14] MEDS: METFORMIN ER 500 MG TAB PO SCH (09:13)
[2020-03-14] MEDS: GLIMEPIRIDE 2 MG TABLET PO SCH (09:14)
[2020-03-14] MEDS: ASPIRIN 81 MG CHEWABLE TABLET PO SCH (09:15)
[2020-03-14] MEDS: SPIRONOLACTONE 25 MG TABLET PO SCH (09:19)
[2020-03-14] MEDS: allopurinoL 300 MG TAB PO SCH (09:20)
[2020-03-14] MEDS: lisinopriL 20 MG TAB PO SCH (09:21)
[2020-03-14] MEDS: AMLODIPINE 5 MG TAB PO SCH (09:21)
[2020-03-14 11:42] VITALS: O2SAT 100
== END 2020-03-14 09:50 | disposition home or self-care (01) | DRG 208 ==
LOC: ER 19:59 → ERHOLD 22:12 → 2ND 03-12 20:09
PROVIDERS: ADMIT Internal Medicine; ATTEND Internal Medicine
PROC: 5A1945Z Respiratory Ventilation, 24-96 Consecutive Hours (ICD-10-PCS; principal; 2020-03-06)
PROC: 0BH17EZ Insertion of Endotracheal Airway into Trachea, Via Natural or Artificial Opening (ICD-10-PCS; 2020-03-06)
PROC: 02HV33Z Insertion of Infusion Device into Superior Vena Cava, Percutaneous Approach (ICD-10-PCS; 2020-03-09)
DX: J96.01 Acute respiratory failure with hypoxia (principal); J15.9 Unspecified bacterial pneumonia; I50.33 Acute on chronic diastolic (congestive) heart failure; I21.9 Acute myocardial infarction, unspecified; N17.9 Acute kidney failure, unspecified; Z99.11 Dependence on respirator [ventilator] status; I13.0 Hypertensive heart and chronic kidney disease with heart failure and stage 1 through stage 4 chronic kidney disease, or unspecified chronic kidney disease; N18.9 Chronic kidney disease, unspecified; E11.22 Type 2 diabetes mellitus with diabetic chronic kidney disease; J96.02 Acute respiratory failure with hypercapnia; E78.5 Hyperlipidemia, unspecified; K21.9 Gastro-esophageal reflux disease without esophagitis; E87.6 Hypokalemia; E66.9 Obesity, unspecified; Z68.33 Body mass index [BMI] 33.0-33.9, adult; Z88.1 Allergy status to other antibiotic agents; Z88.8 Allergy status to other drugs, medicaments and biological substances; Z23 Encounter for immunization; Z88.0 Allergy status to penicillin; Z79.84 Long term (current) use of oral hypoglycemic drugs; Z79.82 Long term (current) use of aspirin; Z79.899 Other long term (current) drug therapy; Z20.828 Contact with and (suspected) exposure to other viral communicable diseases
CPT/HCPCS: 31500; 36415; 36569; 51702; 71045; 71275; 80048; 80061; 80076; 81003; 82010; 82140; 82805; 82947; 83036; 83605; 83735; 83880; 84100; 84132; 84484; 85025; 85610; 87040; 87070; 87205; 87804; 93005; 93306; 94002; 94003; 94660; 96372; 97116; 97161; 99291; 99292; J0456; J0692; J0696; J1630; J1650; J1940; J2185; J2250; J2310; J2704; J3010; J3411; J3475; J3480; J3486; J7030; J7050; J7799; Q9967; U0003